=== PATIENT | male | born 1975 | race Caucasian/White ===

== ENCOUNTER 2019-02-24 18:49 | Emergency (ER) | payer OTHER ==
[~2019-02-24] VITALS: Ht 172.7 cm; Wt 61.2 kg
[2019-02-24 20:47] VITALS: BP 118/88; TEMP 98.7
== END 2019-02-24 20:47 | disposition home or self-care (01) ==
LOC: ED 18:49
DX: H66.91 Otitis media, unspecified, right ear (principal); J06.9 Acute upper respiratory infection, unspecified
CPT/HCPCS: 87502; 87651; 99283